=== PATIENT | male | born 1950 | race Caucasian/White ===

== ENCOUNTER 2019-07-16 08:00 | Day surgery (SDC) | payer MEDICARE, BC ==
[~2019-07-16] VITALS: Ht 177.8 cm; Wt 102.8 kg
[~2019-07-16 08:00] MED LIST: ACET325 PO; Bactrim 400-801 EACH PO; Buspirone HCl30 MG PO; DIAZ5; DIAZ5 PO; LAMO25 PO
--- NOTE | 2019-07-16 09:06 | NUR ---
07/16/19 0906 Regi Guillory 1 try right hand flash valve in way 2 try upper right arm valve in way no advance 3 try good left wrist
== END 2019-07-16 10:00 | disposition home or self-care (01) ==
LOC: ORSCSDS 08:00
PROVIDERS: Surgery
PROC: 0DJD8ZZ Inspection of Lower Intestinal Tract, Via Natural or Artificial Opening Endoscopic (ICD-10-PCS; principal; 2019-07-16 09:15)
DX: Z12.11 Encounter for screening for malignant neoplasm of colon (principal); Z85.048 Personal history of other malignant neoplasm of rectum, rectosigmoid junction, and anus; D64.9 Anemia, unspecified; F32.9 Major depressive disorder, single episode, unspecified; E66.9 Obesity, unspecified; Z68.30 Body mass index [BMI] 30.0-30.9, adult; Z86.010 Personal history of colon polyps; Z87.891 Personal history of nicotine dependence; Z79.899 Other long term (current) drug therapy
CPT/HCPCS: 88305; J2704; J7120

== ENCOUNTER 2020-09-27 09:31 | Day surgery (SDC) | payer MEDICARE, BC ==
[~2020-09-27] VITALS: Ht 177.8 cm; Wt 103.5 kg
[~2020-09-27 09:31] MED LIST changes: -DIAZ5
== END 2020-09-27 12:24 | disposition home or self-care (01) ==
LOC: ORSCSDS 09:31
PROVIDERS: Surgery
PROC: 0DBP8ZX Excision of Rectum, Via Natural or Artificial Opening Endoscopic, Diagnostic (ICD-10-PCS; principal; 2020-09-27 10:45)
DX: Z85.048 Personal history of other malignant neoplasm of rectum, rectosigmoid junction, and anus (principal); D64.9 Anemia, unspecified; F32.9 Major depressive disorder, single episode, unspecified; F41.8 Other specified anxiety disorders; Z86.010 Personal history of colon polyps; E66.9 Obesity, unspecified; Z87.891 Personal history of nicotine dependence; Z68.32 Body mass index [BMI] 32.0-32.9, adult; Z79.899 Other long term (current) drug therapy
CPT/HCPCS: 88305; J2704; J7120